=== PATIENT | male | born 1985 | race American Indian/Alaskan Native ===

== ENCOUNTER 2019-05-29 17:56 | Observation (INO) | payer SELFPAY ==
[2019-05-29] MEDS ORDERED: ZOFRAN IV ONE (18:06)
[2019-05-29] MEDS ORDERED: DILAUDID IV ONE ×3 (18:06→21:29)
[2019-05-29] MEDS ORDERED: NACL 0.9% 1000 ML 1,000 ML IV ONE ×3 (18:07→20:09)
--- NOTE | 2019-05-29 18:15 | Emergency Department Report ---
HPI - General Chief Complaint: Extremity Problem,Nontraumatic Time Seen by Provider: 05/29/19 18:01 - [facility] HPI: Room 19 The patient is a 63-year-old male presenting with chief complaint of abdominal pain and right leg pain. Patient states he was in his normal state of health until proximal one hour ago he started hurting "all over." Patient claims in creased pain in his right side and right lower extremity. Patient admits nausea vomiting as well as chest pain. Patient denies dysuria or hematuria. Patient was believed to be felt in SVT by EMS and adenosine 6 mg IV was administered. Patient presents to the ED in sinus tachycardia with a heart rate ranging from 120-140 bpm Location: [See above] Duration: [See above] Quality: [See above] Severity: [See above] Modifying factors: [see above] Context: [see above] Mode of transportation: [not driving] ED Past Medical Hx - Past Medical History Previous Medical History?: No - Surgical History Past Surgical History?: No Additional Surgical History: facial (nose) - Social History Smoking Status: Never Smoker Substance Use Type: None ED Review of Systems ROS: Stated complaint: SVT Other details as noted in HPI Constitutional: diaphoresis Eyes: denies: eye pain ENT: denies: throat pain Respiratory: no symptoms reported Cardiovascular: chest pain Endocrine: no symptoms reported Gastrointestinal: abdominal pain, nausea, vomiting Genitourinary: denies: dysuria, hematuria Musculoskeletal: back pain Neurological: denies: headache Physical Exam - Physical Exam Vital Signs: Vital Signs 05/29/19 18:02 Temperature 97.7 F Pulse Rate 140 H Respiratory 26 H Rate Blood Pressure 152/115 O2 Sat by Pulse 99 Oximetry Physical Exam: GENERAL: The patient is well-developed well-nourished male lying on stretcher appearing diaphoretic and in significant pain. [] HEENT: Normocephalic. Atraumatic. Extraocular motions are intact. Patient has moist mucous membranes. NECK: Supple. Trachea midline CHEST/LUNGS: Clear to auscultation. There is no respiratory distress noted. HEART/CARDIOVASCULAR: Regular. There is tachycardia. There is no gallop rub or murmur. 2+ DPs bilaterally ABDOMEN: Abdomen is soft, nontender. Patient has normal bowel sounds. There is no abdominal distention. SKIN: There is no rash. There is no edema. There is diaphoresis. NEURO: The patient is awake, alert, and oriented. The patient is cooperative. The patient has normal speech MUSCULOSKELETAL: There is pain in the right back but there is no CVA tenderness. There is no limitation range of motion. There is no evidence of acute injury. ED Course Vital Signs 05/29/19 18:02 Temperature 97.7 F Pulse Rate 140 H Respiratory 26 H Rate Blood Pressure 152/115 O2 Sat by Pulse 99 Oximetry - Consultations Consultation #1: 05/29/19 22:[address] Iglesias called to give verbal report of noncontrast CT abdomen and pelvis-no abnormality seen. CT chest, abdomen and pelvis angiogram ordered ED Medical Decision Making - Lab Data Result diagrams: 05/29/19 18:15 05/29/19 18:15 Laboratory Tests 05/29/19 05/29/19 05/29/19 18:15 18:15 18:15 WBC 10.2 RBC 5.86 H Hgb 16.2 H Hct 48.6 H MCV 83 L MCH 28 MCHC 33 RDW 14.1 Plt Count 275 Lymph % (Auto) 15.8 [place] % (Auto) 8.2 H Eos % (Auto) 0.7 Baso % (Auto) 0.6 Lymph # 1.6 [place] # 0.8 Eos # 0.1 Baso # 0.1 Seg Neutrophils % 74.7 H Seg Neutrophils # 7.7 PT 14.1 INR 1.12 VBG pH Sodium 136 L Potassium 4.0 Chloride 101.4 Carbon Dioxide 15 L Anion Gap 24 BUN 20 Creatinine 1.5 Estimated GFR 53 BUN/Creatinine Ratio 13 Glucose 123 H Lactic Acid Calcium 10.7 H Total Bilirubin 0.60 AST 25 ALT 36 Alkaline Phosphatase 68 Total Creatine Kinase 371 H CK-MB (CK-2) 2.7 CK-MB (CK-2) Rel Index 0.7 Troponin T < 0.010 Total Protein 8.9 H Albumin 4.7 Albumin/Globulin Ratio 1.1 Lipase 34 Urine Color Urine Turbidity Urine pH Ur Specific Brow[place] Urine Protein Urine Glucose (UA) Urine Ketones Urine Blood Urine Nitrite Urine Bilirubin Urine Urobilinogen Ur Leukocyte Esterase Urine WBC (Auto) Urine RBC (Auto) U Epithel Cells (Auto) Hyaline Casts Urine Mucus 05/29/19 05/29/19 05/29/19 20:27 22:56 22:56 WBC RBC Hgb Hct MCV MCH MCHC RDW Plt Count Lymph % (Auto) [place] % (Auto) Eos % (Auto) Baso % (Auto) Lymph # [place] # Eos # Baso # Seg Neutrophils % Seg Neutrophils # PT INR VBG pH 7.313 L Sodium Potassium Chloride Carbon Dioxide Anion Gap BUN Creatinine Estimated GFR BUN/Creatinine Ratio Glucose Lactic Acid 1.00 Calcium Total Bilirubin AST ALT Alkaline Phosphatase Total Creatine Kinase CK-MB (CK-2) CK-MB (CK-2) Rel Index Troponin T Total Protein Albumin Albumin/Globulin Ratio Lipase Urine Color Yellow Urine Turbidity Clear Urine pH 5.0 Ur Specific Brow[place] 1.020 Urine Protein <15 mg/dl Urine Glucose (UA) Neg Urine Ketones Neg Urine Blood Neg Urine Nitrite Neg Urine Bilirubin Neg Urine Urobilinogen < 2.0 Ur Leukocyte Esterase Tr Urine WBC (Auto) 2.0 Urine RBC (Auto) 3.0 U Epithel Cells (Auto) 2.0 Hyaline Casts 2 Urine Mucus Few - Radiology Data Radiology results: report reviewed (CT abdomen and pelvis, CT angiogram chest abdomen pelvis), image reviewed (CT abdomen and pelvis, CT angiogram chest abdomen pelvis) [address] [address] Cat Scan Report Signed Patient: LAYO SALEH MR#: [id number] : 1985 Acct:[id number] Age/Sex: 33 / M ADM Date: 05/29/19 Loc: ED Attending Dr: Ordering Physician: MEME MCCARTNEY MD Date of Service: 05/29/19 Procedure(s): CT abdomen pelvis wo con Accession Number(s): [id number] cc: MEME MCCARTNEY MD CT ABDOMEN AND PELVIS WITHOUT IV CONTRAST INDICATION: severe right-sided abdominal pain. COMPARISON: None available. TECHNIQUE: All CT scans at this facility use dose modulation, automated exposure control, iterative reconstruction or weight based dosing, when appropriate, to reduce radiation dose to as low as reasonably achievable. FINDINGS: Lung Bases: Clear. Skeletal System: No acute abnormality. ABDOMEN: Liver: Normal. Gallbladder: Normal. Bile Ducts: Normal. Pancreas: Normal. Spleen: Normal. Adrenals: Normal. Right Kidney: Normal. Left Kidney: Normal. Stomach and Bowel: Normal. Lymph Nodes: No significant adenopathy. Aorta: No significant abnormality. Additional Findings: None. PELVIS: Colon: Normal . Urinary Bladder and Distal Ureters: Normal. Appendix: Normal. Lymph Nodes: No significant adenopathy. Additional Findings: None. IMPRESSION: 1. Within the limitations of non-contrast technique, no acute process in the abdomen or pelvis. Signer Name: Curt Iglesias MD Signed: 05/29/2019 10:21 PM Workstation Name: [id number] Transcribed By: Dictated By: Curt Iglesias MD Electronically Authenticated By: Curt Iglesias MD Signed Date/Time: 05/29/192220 DD/ 18 TD/TT: [facility] [address] [place] [address] Cat Scan Report Signed Patient: LAYO SALEH MR#: [id number] : 1985 Acct:[id number] Age/Sex: 33 / M ADM Date: 05/29/19 Loc: ED Attending Dr: Ordering Physician: MEME MCCARTNEY MD Date of Service: 05/29/19 Procedure(s): CT angio chest Accession Number(s): [id number] cc: MEME MCCARTNEY MD CTA chest, abdomen, and pelvis with contrast INDICATION : chest pain, right-sided abdominal pain. TECHNIQUE: Axial imaging performed through the chest, abdomen, and pelvis, with contrast bolus timing set to maximize opacification of the aorta. 3-plane MIP reformatted images were obtained. All CT scans at this location are performed using CT dose reduction for ALARA by means of automated exposure control. 100 mL of intravenous contrast administered. COMPARISON: CT abdomen without contrast from earlier today FINDINGS: Vascular findings: The aorta and all of the branch vessels appear normal. There is normal branch anatomy. No aneurysm, dissection, or transection. No significant atherosclerotic disease. There is also adequate opacification of the pulmonary arterial vasculature which shows no filling defect to suggest a PTE. Nonvascular findings: Chest: Heart size is normal. No pathologic mediastinal adenopathy. There is mild by basilar atelectasis with otherwise clear lungs. Mild degenerative changes are present in the spine with nothing acute. No axillary adenopathy. Abdomen/pelvis: The liver, gallbladder, pancreas, adrenals, kidneys, and proximal GI tract appear unremarkable for arterial phase technique. Heterogeneous perfusion of the spleen may simply be related to technique. There are several calcifications in the spleen consistent with sequelae of old granulomatous disease. Urinary bladder and prostate appear unremarkable with no pelvic free fluid and no acute colonic abnormality identifi ed. The appendix and terminal ileum appear normal. There are degenerative changes within the spine with no acute osseous abnormality. IMPRESSION: 1. No acute vascular abnormality. 2. No significant incidental findings. Signer Name: Nishant Andrews MD Signed: 05/30/2019 12:27 AM Workstation Name: [id number] Transcribed By: TERRANCE Dictated By: Nishant Andrews MD Electronically Authenticated By: Nishant Andrews MD Signed Date/Time: 05/30/1926 DD/ TD/TT: - Differential Diagnosis renal colic, aortic dissection, rhabdomyolysis, Critical care attestation.: If time is entered above; I have spent that time in minutes in the direct care of this critically ill patient, excluding procedure time. ED Disposition Clinical Impression: Acute abdominal pain, Acute chest pain, Acidosis, Tachycardia, Hypercalcemia Disposition: OP ADMIT IP TO THIS HOSP Is pt being admited?: Yes Does the pt Need Aspirin: Yes Condition: Fair Instructions: Chest Pain (ED) Referrals: [facility] MD DENAE [Primary Care Provider] - 3-5 Days Time of Disposition: 00:46 (hospitalist paged (Dr. Jesika Jaffe))
[2019-05-29 18:24] LABS: Basophils # (Auto) 0.1 K/mm3 (0.0-0.1); Basophils % (Auto) 0.6 % (0.0-1.8); Eosinophils # (Auto) 0.1 K/mm3 (0.0-0.4); Eosinophils % (Auto) 0.7 % (0.0-4.3); Hematocrit 48.6 % (35.5-45.6); Hemoglobin 16.2 gm/dl (11.8-15.2); Lymphocytes # (Auto) 1.6 K/mm3 (1.2-5.4); Lymphocytes % (Auto) 15.8 % (13.4-35.0); Mean Corpuscular HGB Conc 33 % (32-34); Mean Corpuscular Volume 83 fl (84-94); Monocytes # (Auto) 0.8 K/mm3 (0.0-0.8); Monocytes % (Auto) 8.2 % (0.0-7.3); Platelet Count 275 K/mm3 (140-440); Red Blood Count 5.86 M/mm3 (3.65-5.03); Red Cell Distribution Width 14.1 % (13.2-15.2)
[2019-05-29 18:44] LABS: INR 1.12 (0.87-1.13)
[2019-05-29 18:46] LABS: Creatine Kinase MB 2.7 ng/mL (0.0-4.0)
[2019-05-29 18:49] LABS: Alanine Aminotransferase 36 units/L (7-56); Albumin 4.7 g/dL (3.9-5); BUN/Creatinine Ratio 13; Blood Urea Nitrogen 20 mg/dL (9-20); Calcium 10.7 mg/dL (8.4-10.2); Hemolysis Index 6
[2019-05-29 20:41] LABS: Bilirubin,Urine NEG (Negative); Blood,Urine NEG (Negative); Color,Urine Yellow (Yellow); Hyaline Casts,Urine 2 /LPF; Mucus,Urine FEW /HPF; Protein,Urine <15 mg/dL mg/dL (Negative); Urobilinogen,Urine < 2.0 mg/dL (<2.0)
--- NOTE | 2019-05-29 22:25 | Cat Scan Report ---
CT ABDOMEN AND PELVIS WITHOUT IV CONTRAST INDICATION: severe right-sided abdominal pain. COMPARISON: None available. TECHNIQUE: All CT scans at this facility use dose modulation, automated exposure control, iterative reconstructi on or weight based dosing, when appropriate, to reduce radiation dose to as low as reasonably achieva ble. FINDINGS: Lung Bases: Clear. Skeletal System: No acute abnormality. ABDOMEN: Liver: Normal. Gallbladder: Normal. Bile Ducts: Normal. Pancreas: Normal. Spleen: Normal. Adrenals: Normal. Right Kidney: Normal. Left Kidney: Normal. Stomach and Bowel: Normal. Lymph Nodes: No significant adenopathy. Aorta: No significant abnormality. Additional Findings: None. PELVIS: Colon: Normal . Urinary Bladder and Distal Ureters: Normal. Appendix: Normal. Lymph Nodes: No significant adenopathy. Additional Findings: None. IMPRESSION: 1. Within the limitations of non-contrast technique, no acute process in the abdomen or pelvis. Signer Name: Curt Iglesias MD Signed: 05/29/2019 10:21 PM Workstation Name: [id number]
--- NOTE | 2019-05-30 00:31 | Cat Scan Report ---
CTA chest, abdomen, and pelvis with contrast INDICATION : chest pain, right-sided abdominal pain. TECHNIQUE: Axial imaging performed through the chest, abdomen, and pelvis, with contrast bolus timin g set to maximize opacification of the aorta. 3-plane MIP reformatted images were obtained. All CT s cans at this location are performed using CT dose reduction for ALARA by means of automated exposure control. 100 mL of intravenous contrast administered. COMPARISON: CT abdomen without contrast from earlier today FINDINGS: Vascular findings: The aorta and all of the branch vessels appear normal. There is normal branch lisa paul. No aneurysm, dissection, or transection. No significant atherosclerotic disease. There is also a dequate opacification of the pulmonary arterial vasculature which shows no filling defect to suggest a PTE. Nonvascular findings: Chest: Heart size is normal. No pathologic mediastinal adenopathy. There is mild by basilar atelectas is with otherwise clear lungs. Mild degenerative changes are present in the spine with nothing acute. No axillary adenopathy. Abdomen/pelvis: The liver, gallbladder, pancreas, adrenals, kidneys, and proximal GI tract appear unr emarkable for arterial phase technique. Heterogeneous perfusion of the spleen may simply be related t o technique. There are several calcifications in the spleen consistent with sequelae of old granuloma tous disease. Urinary bladder and prostate appear unremarkable with no pelvic free fluid and no acute colonic abnor mality identified. The appendix and terminal ileum appear normal. There are degenerative changes with in the spine with no acute osseous abnormality. IMPRESSION: 1. No acute vascular abnormality. 2. No significant incidental findings. Signer Name: Nishant Andrews MD Signed: 05/30/2019 12:27 AM Workstation Name: [id number]
[2019-05-30] MEDS ORDERED: ASPIRIN PO ONE (00:47)
[2019-05-30] MEDS ORDERED: MORPHINE IV PRN (01:08)
[2019-05-30] MEDS ORDERED: SODIUM CHLORIDE FLUSH SYRINGE 10 ML IV PRN (01:08)
[2019-05-30] MEDS ORDERED: TYLENOL PO PRN (01:08)
[2019-05-30] MEDS ORDERED: ZOFRAN IV PRN (01:08)
--- NOTE | 2019-05-30 01:08 | History and Physical Report ---
History of Present Illness Date of examination: 05/30/19 History of present illness: 33 year old man emergency room for evaluation. He stated that 1 hour before arrival started having generalized body ache and pain occluded bilateral flank pain, epigastric chest pain and right leg pain. EMS was called and they stated the patient was in SVT at 160, given adenosine. In the emergency room his RA was in the 120s, started on IV fluids. Chest pain he describes as sharp, intermittent every 3 minutes, no radiation, genitourinary thigh exacerbating or relieving factors. Admits to shortness of breath, no diaphoresis or palpitation. Admits to nausea vomiting Review Of Systems: Constitutional: no weight loss, fever, chills Ears, eyes, nose, mouth and throat: no nasal congestion, no nasal discharge, no sinus pressure, blurry vision, diplopia Neck: No neck pain or rigidity. Cardiovascular: No palpitations Respiratory: No shortness of breath, cough Gastrointestinal: No hematochezia, abdominal pain Genitourinary : no dysuria, frequency , hematuria Musculoskeletal: no muscle ache , joint pain Integumentary: no rash, no pruritis Neurological: no parathesias, focal weakness Endocrine: no cold or heat intolerance, no polyuria or polydipsia Hematologic/Lymphatic: no easy bruising, no easy bleeding, no gland swelling Allergic/Immunologic: no urticaria, no angioedema. PAST MEDICAL HISTORY:none PAST SURGICAL HISTORY: nose FAMILY HISTORY:hypertension, diabetes SOCIAL HISTORY: Denies tobacco, drugs, alcohol Medications and Allergies Allergies Allergy/AdvReac Type Severity Reaction Status Date / Time No Known Allergies Allergy Unverified 05/29/19 18:13 Active Meds: Active Medications Sodium Chloride (Nacl 0.9% 1000 Ml) 1,000 mls @ 150 mls/hr IV ONCE ONE Stop: 05/30/19 02:48 Last Admin: 05/29/19 20:50 Dose: 150 mls/hr Documented by: Exam - Physical Exam Narrative exam: General Apperance: The patient sitting in bed no acute distress HEENT: Normocephalic, atraumatic. Pupils equally round and reactive to light, extraocular movement intact, and no sclericterus or JVD or thyromegaly or nodule. Neck supple, no carotid bruit, mucous membranes moist, no exudate or erythema Heart: S1-S2, regular is rhythm Lungs: Clear to auscultation bilaterally, breathing comfortable Abdomen: Positive bowel sounds, soft, nontender, nondistended, no organomegaly Extremities: No edema cyanosis clubbing Skin: no rash, nodule, warm and dry Neuro:CN 2 -12 intact, motor/sensory intact, speech is fluent - Constitutional Vitals: Temp Pulse Resp BP Pulse Ox 97.7 F 92 H 17 110/76 99 05/29/19 18:02 05/29/19 23:30 05/29/19 23:30 05/29/19 23:30 05/29/19 23:30 Results - Labs CBC & Chem 7: 05/29/19 18:15 05/29/19 18:15 Labs: Abnormal lab results 05/29/19 05/29/19 05/29/19 Range/Units 18:15 18:15 22:56 RBC 5.86 H (3.65-5.03) M/mm3 Hgb 16.2 H (11.8-15.2) gm/dl Hct 48.6 H (35.5-45.6) % MCV 83 L (84-94) fl [place] % (Auto) 8.2 H (0.0-7.3) % Seg Neutrophils % 74.7 H (40.0-70.0) % VBG pH 7.313 L (7.320-7.420) Sodium 136 L (137-145) mmol/L Carbon Dioxide 15 L (22-30) mmol/L Glucose 123 H (75-100) mg/dL Calcium 10.7 H (8.4-10.2) mg/dL Total Creatine Kinase 371 H (55-170) units/L Total Protein 8.9 H (6.3-8.2) g/dL - Imaging and Cardiology EKG: image reviewed CT scan - abdomen: report reviewed CT scan - chest: report reviewed CT scan - pelvis: report reviewed Assessment and Plan Assessment Chest pain Tachycardia Plan Check cardiac enzymes, echo, consult cardiology IV morphine, fluid, check urine tox, DVT prophylaxis
[2019-05-30] MEDS ORDERED: NACL 0.45% 1000 ML 1,000 ML IV SCH (02:00)
[2019-05-30 02:16] LABS: Creatine Kinase MB 5.4 ng/mL (0.0-4.0)
[2019-05-30 02:42] LABS: Amphetamine Screen,Urine PRESUMPTIVE NEGATIVE; Benzodiazepines Screen,Urine PRESUMPTIVE NEGATIVE; Cannabinoid Screen,Urine PRESUMPTIVE NEGATIVE; Cocaine Screen,Urine PRESUMPTIVE NEGATIVE; Methadone Screen,Urine PRESUMPTIVE NEGATIVE; Opiate Screen,Urine PRESUMPTIVE NEGATIVE
[2019-05-30 07:23] LABS: Creatine Kinase MB 6.6 ng/mL (0.0-4.0)
[2019-05-30 08:44] VITALS: BP 111/71
[2019-05-30] MEDS ORDERED: SODIUM CHLORIDE FLUSH SYRINGE 10 ML IV SCH (10:00)
--- NOTE | 2019-05-30 10:44 | Consultation ---
History of Present Illness Consult date: 05/30/19 Requesting physician: KIRSTEN DELVALLE Consult reason: tachycardia History of present illness: 33-year-old male with no past medical history who was outside yesterday and walks 6 miles more than usually came back to the hospital and felt his body become numb and was on the ground denies any palpitations EMS was called and is found to be in tachycardia at 160 and was given adenosine no strips were located in the chart to benefit SVT. Patient denies any palpitations. Patient denies any palpitations prior with activity. Patient states may have been dehydrated and not in eating as well yesterday that he normally does. Patient denies any family history of SVT. Patient denies any chest pain shortness of breath seizure fever Past History Past Medical History: denies: hypertension, hyperlipidemia Past Surgical History: denies: No surgical history Social history: no significant social history. denies: alcohol abuse (social) Medications and Allergies Allergies Allergy/AdvReac Type Severity Reaction Status Date / Time No Known Allergies Allergy Unverified 05/29/19 18:13 Home Medications Medication Instructions Recorded Confirmed Last Taken Type No Known Home Medications [No 05/30/19 05/30/19 Unknown History Reported Home Medications] Active Meds: Active Medications Acetaminophen (Tylenol) 650 mg PO Q4H PRN PRN Reason: Pain MILD(1-3)/Fever >100.5/RAJAN Sodium Chloride (Nacl 0.45% 1000 Ml) 1,000 mls @ 100 mls/hr IV DIRECT HAILEE Last Admin: 05/30/19 02:56 Dose: 100 mls/hr Documented by: Morphine Sulfate (Morphine) 2 mg IV Q4H PRN PRN Reason: Pain, Moderate (4-6) Ondansetron HCl (Zofran) 4 mg IV Q8H PRN PRN Reason: Nausea And Vomiting Sodium Chloride (Sodium Chloride Flush Syringe 10 Ml) 10 ml IV BID HAILEE Sodium Chloride (Sodium Chloride Flush Syringe 10 Ml) 10 ml IV PRN PRN PRN Reason: LINE FLUSH Review of Systems All systems: negative (as per hpi) Physical Examination Vital Signs Pulse 129 H 05/29/19 17:58 General appearance: no acute distress, well-nourished HEENT: Positive: PERRL, Mucus Membranes Moist Neck: Positive: neck supple, trachea midline Cardiac: Positive: Reg Rate and Rhythm, S1/S2. Negative: Audible Murmur Lungs: Positive: clear to auscultation, Normal Breath Sounds Neuro: Positive: Grossly Intact Abdomen: Positive: Soft, Active Bowel Sounds. Negative: Tender, Distended Male genitourinary: Positive: normal Skin: Positive: Clear Incision: Cardiac Cath Site Musculoskeletal: No Pain, Normal Range of Motion Extremities: Present: normal. Absent: edema Results 05/29/19 18:15 05/29/19 18:15 Cardiac Enzymes 05/29/19 05/30/19 05/30/19 Range/Units 18:15 01:36 06:52 AST 25 (5-40) units/L CK-MB (CK-2) 2.7 5.4 H 6.6 H (0.0-4.0) ng/mL Coagulation 05/29/19 Range/Units 18:15 PT 14.1 (12.2-14.9) Sec. INR 1.12 (0.87-1.13) CBC 05/29/19 Range/Units 18:15 WBC 10.2 (4.5-11.0) K/mm3 RBC 5.86 H (3.65-5.03) M/mm3 Hgb 16.2 H (11.8-15.2) gm/dl Hct 48.6 H (35.5-45.6) % Plt Count 275 (140-440) K/mm3 Lymph # 1.6 (1.2-5.4) K/mm3 [place] # 0.8 (0.0-0.8) K/mm3 Eos # 0.1 (0.0-0.4) K/mm3 Baso # 0.1 (0.0-0.1) K/mm3 Comprehensive Metabolic Panel 05/29/19 Range/Units 18:15 Sodium 136 L (137-145) mmol/L Potassium 4.0 (3.6-5.0) mmol/L Chloride 101.4 (98-107) mmol/L Carbon Dioxide 15 L (22-30) mmol/L BUN 20 (9-20) mg/dL Creatinine 1.5 (0.8-1.5) mg/dL Glucose 123 H (75-100) mg/dL Calcium 10.7 H (8.4-10.2) mg/dL AST 25 (5-40) units/L ALT 36 (7-56) units/L Alkaline Phosphatase 68 (35-129) units/L Total Protein 8.9 H (6.3-8.2) g/dL Albumin 4.7 (3.9-5) g/dL - Imaging and Cardiology Echo: report reviewed (normal LV functionand no significant regurgitations) EKG interpretations - Telemetry EKG Rhythm: Sinus Tachycardia (sinus tachycardia) Assessment and Plan Near syncope Sinus tachycardia Dehydration possible heat exhaustion Recommend continue IV hydration as patient was dehydrated and heat exhaustion yesterday's over exertion causing his elevated heart rate and possible symptomology with normal LV function negative troponin patient states feeling well may be discharged from a cardiovascular point of view. We'll consider an outpatient treadmill stress test for inducible arrhythmia
--- NOTE | 2019-05-30 11:38 | Discharge Summary ---
Providers - Providers Date of Admission: 05/30/19 01:08 Date of discharge: 05/30/19 Attending physician: KIRSTEN DELVALLE 05/30/19 01:08 Consult to Physician [CONS] Routine Comment: Consulting Provider: CLAUDE SHAFFER Physician Instructions: Reason For Exam: marian masters Primary care physician: [facility], [place] Hospitalization Reason for admission: palpitations Condition: Fair Hospital course: 33-year-old male with no past medical history who was outside the day [employer] and developed a feeling of numbness that overcame his body. The patient normally walks 6 miles daily. EMS was called and he was found to be tachycardic w/ HR 160s and was given adenosine. However, no strips were located in the chart to benefit SVT. Patient denied any palpitations the episode or prior with activity. Patient denied any family history of SVT. Cardiology saw the patient in consultation and felt the tachycardia was more sinus tachycardia. Patient also likely had some underlying dehydration with possible heat exhaustion. Patient received IV fluid hydration on this hospitalization. Cardiology feels that the symptomatology is related to heat exhaustion and dehydration along with normal LV function and negative troponin that the patient can be discharged home and follow-up as an outpatient. Patient will likely need outpatient treadmill stress test for inducible arrhythmia. Dedicated discharge time 32 minutes. Disposition: - TO HOME OR SELFCARE Time spent for discharge: 32 - Discharge Diagnoses (1) Heat exhaustion Status: Acute (2) Dehydration Status: Acute (3) Tachycardia Status: Acute Core Measure Documentation - Palliative Care Palliative Care/ Comfort Measures: Not Applicable - Core Measures Any of the following diagnoses?: none Exam - Constitutional Vitals: Temp Pulse Resp BP Pulse Ox 98.3 F 110 H 18 111/71 96 05/30/19 08:01 05/30/19 08:07 05/30/19 08:01 05/30/19 08:01 05/30/19 10:17 General appearance: Present: no acute distress, well-nourished - EENT Eyes: Present: PERRL ENT: hearing intact, clear oral mucosa - Neck Neck: Present: supple, normal ROM - Respiratory Respiratory effort: normal Respiratory: bilateral: CTA - Cardiovascular Heart Sounds: Present: S1 & S2. Absent: rub, click - Extremities Extremities: pulses symmetrical, No edema Peripheral Pulses: within normal limits - Abdominal General gastrointestinal: Present: soft, non-tender, non-distended, normal bowel sounds Male genitourinary: Present: normal - Integumentary Integumentary: Present: clear, warm, dry - Musculoskeletal Musculoskeletal: gait normal, strength equal bilaterally - Psychiatric Psychiatric: appropriate mood/affect, intact judgment & insight - Neurologic Neurologic: CNII-XII intact, moves all extremities Plan Activity: no restrictions Weight Bearing Status: Full Weight Bearing Diet: regular Follow up with: BRYSON STEIN MD [Primary Care Provider] - 3-5 Days DARYA BHATT MD [Staff Physician] - 7 Days
== END 2019-05-30 14:13 | disposition home or self-care (01) ==
LOC: EDBD → ED 17:56 → 4A 05-30 01:08
PROVIDERS: ADMIT Internal Medicine; ATTEND Hospitalist
DX: R07.89 Other chest pain (principal); R00.0 Tachycardia, unspecified; I10 Essential (primary) hypertension; E11.9 Type 2 diabetes mellitus without complications; R10.9 Unspecified abdominal pain; E83.52 Hypercalcemia; E87.2 Acidosis
CPT/HCPCS: 36415; 71275; 72191; 74175; 74176; 80053; 80307; 81001; 82140; 82550; 82553; 82805; 83690; 84484; 85025; 85610; 87040; 93005; 93010; 93306; 96361; 96374; 96375; 96376; 99284; G0378; J1170; J2405; J7030; Q9967